=== PATIENT | male | born 1990 | race American Indian/Alaskan Native ===

== ENCOUNTER 2018-12-09 08:12 | Emergency (ER) | payer SELFPAY ==
[2018-12-09] MEDS ORDERED: TORADOL IM ONE (09:13)
[2018-12-09 09:39] LABS: Basophils % (Auto) 0.3 % (0.0-1.8); Eosinophils % (Auto) 0.2 % (0.0-4.3); Hematocrit 35.3 % (35.5-45.6); Lymphocytes # (Auto) 1.2 K/mm3 (1.2-5.4); Lymphocytes % (Auto) 24.2 % (13.4-35.0); Mean Corpuscular HGB Conc 34 % (32-34); Mean Corpuscular Volume 86 fl (84-94); Monocytes # (Auto) 0.7 K/mm3 (0.0-0.8); Monocytes % (Auto) 14.4 % (0.0-7.3); Platelet Count 348 K/mm3 (140-440); Red Blood Count 4.08 M/mm3 (3.65-5.03); Red Cell Distribution Width 14.3 % (13.2-15.2)
[2018-12-09 09:51] LABS: BUN/Creatinine Ratio 11; Blood Urea Nitrogen 9 mg/dL (9-20); Calcium 8.8 mg/dL (8.4-10.2); Hemolysis Index 16
--- NOTE | 2018-12-09 10:49 | XRay Report ---
CHEST 2 VIEWS INDICATION: Cough. COMPARISON: None similar. FINDINGS: PA and lateral chest radiographs demonstrate clear lungs without pleural effusions or CHF. Top normal heart size. Slightly prominent left pulmonary artery contour. Right hemidiaphragm approximately 2 cm higher than the left. No acute osseous abnormality. CONCLUSION: No acute chest process, though subtle pulmonary arterial hypertension questioned, as described. Please correlate. Thank you for the opportunity to participate in this patient's care.
[2018-12-09] MEDS ORDERED: MORPHINE IV ONE (11:07)
--- NOTE | 2018-12-09 11:14 | XRay Report ---
LEFT ANKLE RADIOGRAPHS INDICATION: Left ankle swelling. COMPARISON: None similar at this institution. FINDINGS: AP and lateral left ankle radiographs demonstrate intact mortise, malleoli and talar dome contour. Slight diffuse soft tissue prominence/swelling about the ankle not entirely excluded. CONCLUSION: No acute left ankle bony abnormality, as described. Thank you for the opportunity to participate in this patient's care.
--- NOTE | 2018-12-09 12:35 | Vascular Lab Report ---
FINAL REPORT EXAM: VL VENOUS DUPLEX LE BILAT HISTORY: leg pain with elevated ddimer COMPARISON: None. TECHNIQUE: Duplex Doppler ultrasound of the veins of the bilateral lower extremities was performed. FINDINGS: The veins of the bilateral lower extremities are patent, compressible, and demonstrate normal wavefor ms and augmentation. IMPRESSION: No evidence of deep venous thrombosis of the bilateral lower extremities.
--- NOTE | 2018-12-09 12:36 | Cat Scan Report ---
CTA CHEST INDICATION: Elevated d-dimer. Leg pain. Cough with pleuritic chest pain. COMPARISON: None similar. FINDINGS: Chest CTA performed following intravenous administration of 100 cc of Omnipaque 350. Rotational MIP's also obtained. Normal heart size. No effusions. No aortic aneurysm, dissection or suspicious pulmonary arterial filling defects. Borderline pulmonary arterial hypertension. No size significant adenopathy. Normal airway. Unremarkable thyroid. Clear lungs. Images through included upper abdomen reveal no acute abnormality. Left hepatic lobe tip though touches the spleen in the left upper quadrant. Slight reverse S-shaped thoracic kyphoscoliosis. CONCLUSION: No CT evidence of pulmonary embolism with few other findings, as described. Please correlate. Thank you for the opportunity to participate in this patient's care.
--- NOTE | 2018-12-09 13:31 | Emergency Department Report ---
ED General Adult HPI - General Chief complaint: Extremity Problem,Nontraumatic Stated complaint: SWOLLEN (L) ANKLE Time Seen by Provider: 12/09/18 09:06 Source: patient Mode of arrival: Wheelchair Limitations: No Limitations - History of Present Illness Initial comments: Patient is a 28 or [place] male with past medical history of HIV who is complaining of 3 weeks of left ankle swelling. Patient also states that he has had cough that is painful when he takes deep breath. Cough is nonproductive. Patient states she's been to several ERs for the last 3 weeks has been "told a bunch of bull". Patient is unable to state what tests were done at the other hospitals. Patient is a poor historian is very reluctant to give a history. Patient states the pain is worse with any movement. Patient denies any trauma. Patient states he has been unable to walk for the last 3 weeks which is inconsistent with the way that he arrived. Patient did walk in on his own accord. Patient denies any fever nausea vomiting diarrhea. Severity scale (0 -10): 10 - Related Data Previous Rx's Medication Instructions Recorded Last Taken Type predniSONE [Deltasone] 20 mg PO QDAY #5 tab 12/09/18 Unknown Rx traMADol [Ultram] 50 mg PO Q6HR PRN #12 tablet 12/09/18 Unknown Rx Allergies Allergy/AdvReac Type Severity Reaction Status Date / Time No Known Allergies Allergy Unverified 12/09/18 08:21 ED Review of Systems ROS: Stated complaint: SWOLLEN (L) ANKLE Other details as noted in HPI Comment: All other systems reviewed and negative ED Past Medical Hx - Past Medical History Previous Medical History?: Yes Hx HIV: Yes - Surgical History Past Surgical History?: No - Social History Smoking Status: Current Every Day Smoker Substance Use Type: None - Medications Home Medications: Home Medications Medication Instructions Recorded Confirmed Last Taken Type predniSONE [Deltasone] 20 mg PO QDAY #5 tab 12/09/18 Unknown Rx traMADol [Ultram] 50 mg PO Q6HR PRN #12 tablet 12/09/18 Unknown Rx ED Physical Exam - General Limitations: No Limitations General appearance: alert, in no apparent distress - Head Head exam: Present: atraumatic, normocephalic - Eye Eye exam: Present: normal appearance - ENT ENT exam: Present: mucous membranes moist - Neck Neck exam: Present: normal inspection - Respiratory Respiratory exam: Present: normal lung sounds bilaterally. Absent: respiratory distress, wheezes, rales, rhonchi, stridor - Cardiovascular Cardiovascular Exam: Present: regular rate, normal rhythm. Absent: systolic murmur, diastolic murmur, rubs, gallop - GI/Abdominal GI/Abdominal exam: Present: soft, normal bowel sounds. Absent: distended, tenderness, guarding - Rectal Rectal exam: Present: deferred - Extremities Exam Extremities exam: Present: normal inspection, tenderness (patient has tenderness to the bilateral lower extremities from the knees down. Patient very cooperative with exam. Patient screamed while taking the bed sheets off of him. When I was able to examine the patient's lower extremities he has very minimal swelling to the left lateral malleolus with no erythema, indurated scan, fluctuance. There is no warmth present.) - Back Exam Back exam: Present: normal inspection - Neurological Exam Neurological exam: Present: alert, oriented X3 - Psychiatric Psychiatric exam: Present: normal affect, normal mood - Skin Skin exam: Present: warm, dry, intact, normal color. Absent: rash ED Course Vital Signs 12/09/18 08:17 Temperature 99.0 F Pulse Rate 86 Respiratory 16 Rate Blood Pressure 109/64 O2 Sat by Pulse 98 Oximetry ED Medical Decision Making - Lab Data Result diagrams: 12/09/18 09:17 12/09/18 09:17 Lab Results 12/09/18 12/09/18 12/09/18 Range/Units 09:17 09:17 09:17 WBC 5.0 (4.5-11.0) K/mm3 RBC 4.08 (3.65-5.03) M/mm3 Hgb 12.0 (11.8-15.2) gm/dl Hct 35.3 L (35.5-45.6) % MCV 86 (84-94) fl MCH 30 (28-32) pg MCHC 34 (32-34) % RDW 14.3 (13.2-15.2) % Plt Count 348 (140-440) K/mm3 Lymph % (Auto) 24.2 (13.4-35.0) % [place] % (Auto) 14.4 H (0.0-7.3) % Eos % (Auto) 0.2 (0.0-4.3) % Baso % (Auto) 0.3 (0.0-1.8) % Lymph # 1.2 (1.2-5.4) K/mm3 [place] # 0.7 (0.0-0.8) K/mm3 Eos # 0.0 (0.0-0.4) K/mm3 Baso # 0.0 (0.0-0.1) K/mm3 Seg Neutrophils % 60.9 (40.0-70.0) % Seg Neutrophils # 3.1 (1.8-7.7) K/mm3 D-Dimer 2271.27 H (0-234) ng/mlDDU Sodium 136 L (137-145) mmol/L Potassium 3.5 L (3.6-5.0) mmol/L Chloride 96.9 L (98-107) mmol/L Carbon Dioxide 30 (22-30) mmol/L Anion Gap 13 mmol/L BUN 9 (9-20) mg/dL Creatinine 0.8 (0.8-1.5) mg/dL Estimated GFR > 60 ml/min BUN/Creatinine Ratio 11 % Glucose 97 (75-100) mg/dL Calcium 8.8 (8.4-10.2) mg/dL - Medical Decision Making Patient is a 28-year-old male who is gone to several emergency departments in the last several weeks including its visit today. Patient complaining of left ankle pain and swelling in addition to generalized bilateral lower extremity pain from the knees down as well as a cough with pleuritic chest pain. Patient's chest x-ray, x-ray of the left ankle, CT of the chest, and bilateral Doppler ultrasounds of the bilateral Lower extermities are negative for DVT. Patient's laboratory studies were all within normal limits except for elevated d-dimer. Patient likely with myalgias and upper respiratory infection. Patient be given pain meds short course of prednisone for his cough congestion and the patient will be discharged home with primary care follow-up Critical care attestation.: If time is entered above; I have spent that time in minutes in the direct care of this critically ill patient, excluding procedure time. ED Disposition Clinical Impression: Upper respiratory infection, Myalgia Disposition: TO HOME OR SELFCARE Is pt being admited?: No Does the pt Need Aspirin: No Condition: Stable Instructions: Upper Respiratory Infection (ED), Musculoskeletal Pain (ED) Additional Instructions: Today he had a CAT scan of the chest was ruled out blood clots in the chest otherwise known as pulmonary embolus. He also had an x-ray of your ankle was ruled out a fracture and an ultrasound of both legs was ruled out a blood clot in the legs otherwise known as a DVT. Laboratory studies were within normal limits today. Chest x-ray was negative for pneumonia. Referrals: VIRGINIA SCHROEDER MD [Primary Care Provider] - 3-5 Days Time of Disposition: 13:33
[2018-12-11 11:37] VITALS: BP 123/78
== END 2018-12-09 14:05 | disposition home or self-care (01) ==
LOC: ED 08:12
DX: J06.9 Acute upper respiratory infection, unspecified (principal); M79.18 Myalgia, other site; F17.200 Nicotine dependence, unspecified, uncomplicated
CPT/HCPCS: 36415; 71046; 71275; 73600; 80048; 85025; 85379; 93970; 96372; 96374; 99285; J1885; J2270; Q9967